=== PATIENT | female | born 1945 | race Caucasian/White ===

== ENCOUNTER 2024-03-13 12:40 | Inpatient (IN) | payer MEDICARE, OTHER ==
[~2024-03-13] VITALS: Ht 170.2 cm; Wt 68.5 kg
[2024-03-13 13:07] LABS: BASOPHILS # (AUTO) 0.1 K/uL (0.0-0.2); BASOPHILS % (AUTO) 0.8 % (0.0-2.0); EOSINOPHILS # (AUTO) 0.7 K/uL (0.0-0.7); EOSINOPHILS % (AUTO) 6.2 % (0.0-6.0); HEMATOCRIT 41 % (33-45); HEMOGLOBIN 13.3 g/dL (11.5-14.8); LYMPHOCYTES # (AUTO) 2.4 K/uL (0.8-4.8); LYMPHOCYTES % (AUTO) 19.9 % (20.0-44.0); MEAN CORPUSCULAR HEMOGLOBIN 26 PG (26.0-33.0); MEAN CORPUSCULAR HGB CONC 33 g/dl (31.0-36.0); MEAN CORPUSCULAR VOLUME 80 fL (82-100); MONOCYTES # (AUTO) 1.3 K/uL (0.1-1.30); MONOCYTES % (AUTO) 10.7 % (2.0-12.0); NEUTROPHILS # (AUTO) 7.4 K/uL (1.8-8.9); NEUTROPHILS % (AUTO) 62.4 % (43.0-81.0); PLATELET COUNT (AUTO) 534 K/uL (150-450); RED BLOOD CELL COUNT(AUTO) 5.11 MIL/uL (4.0-5.2); RED CELL DISTRIBUTION WIDTH 16.2 % (11.5-15.0); WHITE BLOOD COUNT (AUTO) 11.9 K/uL (4.3-11.0)
[2024-03-13 13:14] LABS: CALCIUM, SERUM 8.9 mg/dL (8.5-10.1); CARBON DIOXIDE 27 mmol/L (21-32); CHLORIDE 101 mmol/L (98-107); CREATININE 0.9 mg/dL (0.6-1.3); GLUCOSE 101 mg/dL (74-106); POTASSIUM 3.9 mmol/L (3.5-5.1); SODIUM SERUM 135 mmol/L (136-145); UREA NITROGEN, BLOOD 20 mg/dL (7-18)
[2024-03-13 13:29] LABS: ALANINE AMINOTRANSFERASE 12 U/L (12-78); ALBUMIN 2.8 g/dL (3.4-5.0); ALCOHOL, BLOOD < 3 mg/dL (0-10); ALKALINE PHOSPHATASE 55 U/L (46-116); ASPARTATE AMINOTRANSFERASE 11 U/L (15-37); BILIRUBIN,DIRECT 0.1 mg/dL (0.0-0.2); BILIRUBIN,TOTAL 0.4 mg/dL (0.2-1.0); TOTAL PROTEIN, SERUM 7.6 g/dL (6.4-8.2)
[2024-03-13 13:30] LABS: ACETAMINOPHEN <10 ug/ml (10-30); SALICYLATE 1.1 mg/dL (2.8-20.0)
[2024-03-13] MEDS ORDERED: FLUO20CA42 PO (14:20)
[2024-03-13] MEDS ORDERED: SENN8.6T19 PO (14:20)
[2024-03-13] MEDS ORDERED: LORA10TA7 PO (14:20)
[2024-03-13] MEDS ORDERED: LOPE2CAP PO (14:20)
[2024-03-13] MEDS ORDERED: GABA300C PO (14:20)
[2024-03-13] MEDS ORDERED: CLOP75TA15 PO (14:20)
[2024-03-13] MEDS ORDERED: DIVA250T47 PO (14:20)
[2024-03-13] MEDS ORDERED: MULT-594 PO (14:20)
[2024-03-13] MEDS ORDERED: L. A1TAB10 PO (14:20)
[2024-03-13] MEDS ORDERED: OMEG10006 PO (14:20)
[2024-03-13] MEDS ORDERED: FURO-145 PO (14:20)
[2024-03-13] MEDS ORDERED: NITR0.4T48 SL (14:20)
[2024-03-13] MEDS ORDERED: ACET-73 PO (14:20)
[2024-03-13] MEDS ORDERED: PANT40TA49 PO (14:20)
[2024-03-13] MEDS ORDERED: SPIR25TA PO (14:20)
[2024-03-13 14:25] LABS: APPEARANCE,URINE Cloudy (CLEAR); BILIRUBIN,URINE Negative (NEGATIVE); BLOOD, URINE Trace-lysed Ery/uL (NEGATIVE); COLOR,URINE YELLOW (YELLOW); KETONES,URINE Negative (NEGATIVE); LEUKOCYTE ESTERASE ,URINE Large (NEGATIVE); NITRITE, URINE Positive (NEGATIVE); PH,URINE 5.5 (5.0-8.0); PROTEIN,URINE Negative (NEGATIVE); UGLUCOSE Negative (NEGATIVE); UROBILINOGEN,URINE 0.2 EU/dL (0.2)
[2024-03-13 14:38] LABS: AMPHETAMINE, URINE NEGATIVE (NEGATIVE); BARBITURATE, URINE NEGATIVE (NEGATIVE); BENZODIAZEPINE, URINE NEGATIVE (NEGATIVE); CANNABINOID, URINE NEGATIVE (NEGATIVE); COCCAINE, URINE NEGATIVE (NEGATIVE); OPIATE, URINE NEGATIVE (NEGATIVE); PHENCYCLIDINE SCREEN,URINE NEGATIVE (NEGATIVE)
[2024-03-13 15:20] LABS: ADD URINE CULTURE YES; BACTERIA,URINE 1+ /HPF (None Seen); SQUAMOUS EPITHELIAL CELL,UR Moderate /HPF (None Seen); WBC,URINE 21-50 /HPF (0-3)
[2024-03-13] MEDS ORDERED: LORAZEPAM 0.5 MG TABLET PO PRN (18:00)
[2024-03-13] MEDS ORDERED: ZOLPIDEM TARTRATE 5 MG TABLET PO PRN (18:00)
[2024-03-13] MEDS ORDERED: MAG HYDROX/AL HYDROX/SIMETH 30 ML UDC PO PRN (18:00)
[2024-03-13 19:23] VITALS: BP 103/77; TEMP 98.2; O2SAT 99
[2024-03-13 21:26] VITALS: BP 119/64; TEMP 98; O2SAT 98
[2024-03-13] MEDS: Z GUARD REMEDY 4 OZ OINT TP SCH (21:30)
[2024-03-14 08:00] VITALS: BP 111/77; TEMP 98; O2SAT 98
[2024-03-14 08:33] LABS: ALANINE AMINOTRANSFERASE 11 U/L (12-78); ALBUMIN 2.6 g/dL (3.4-5.0); ALKALINE PHOSPHATASE 55 U/L (46-116); ASPARTATE AMINOTRANSFERASE 15 U/L (15-37); BILIRUBIN,TOTAL 0.4 mg/dL (0.2-1.0); CALCIUM, SERUM 9.1 mg/dL (8.5-10.1); CARBON DIOXIDE 25 mmol/L (21-32); CHLORIDE 101 mmol/L (98-107); CREATININE 0.8 mg/dL (0.6-1.3); GLUCOSE 112 mg/dL (74-106); SODIUM SERUM 137 mmol/L (136-145); TOTAL PROTEIN, SERUM 7.4 g/dL (6.4-8.2); UREA NITROGEN, BLOOD 18 mg/dL (7-18)
[2024-03-14 08:36] LABS: CHOLESTEROL 165 mg/dL (<200); HDL CHOLESTEROL 37 mg/dL (40-60); LDL 112 mg/dL (0-99); TRIGLYCERIDES 117 mg/dL (30-150)
[2024-03-14] MEDS ORDERED: Medication Not On Formulary EA (Omega-3 Fatty Acids (Omega-3) 1,000 MG) PO SCH (09:00)
[2024-03-14] MEDS: SPIRONOLACTONE 25 MG TABLET PO SCH (09:44)
[2024-03-14] MEDS: CIPROFLOXACIN HCL 250 MG TABLET PO SCH (09:45)
[2024-03-14] MEDS: ACIDOPHILUS/BULGARICUS 1 EACH TAB.CHEW PO SCH (09:45)
[2024-03-14] MEDS: LORATADINE 10 MG TABLET PO SCH (09:45)
[2024-03-14] MEDS: PANTOPRAZOLE 40 MG TABLET.DR PO SCH (09:45)
[2024-03-14] MEDS: MULTIVITAMINS,THERAGRAN 1 UDTAB TABLET PO SCH (09:45)
[2024-03-14] MEDS: FUROSEMIDE 20 MG TABLET PO SCH (09:45)
[2024-03-14] MEDS: GABAPENTIN 300 MG CAPSULE PO SCH (09:46)
[2024-03-14] MEDS: CLOPIDOGREL BISULFATE 75 MG TABLET PO SCH (09:47)
[2024-03-14] MEDS: FLUOXETINE HCL 20 MG CAPSULE PO SCH (10:19)
[2024-03-14] MEDS: DIVALPROEX SODIUM 250 MG TABLET.DR PO SCH (10:19)
[2024-03-14 16:00] VITALS: BP 117/66; TEMP 97.8; O2SAT 97
[2024-03-14 20:00] VITALS: BP 109/57; TEMP 98.1; O2SAT 98; O2SAT 99
[2024-03-15 08:00] VITALS: BP 114/58; TEMP 97.9; O2SAT 100
[2024-03-15 16:00] VITALS: BP 116/74; TEMP 97.7; O2SAT 98
[2024-03-15 20:00] VITALS: BP 119/68; TEMP 97.7; O2SAT 90
[2024-03-15] MEDS: MUPIROCIN OINT 2% 22 GM TUBE NS SCH (21:15)
[2024-03-16 08:00] VITALS: BP 112/75; TEMP 98.2; O2SAT 95
[2024-03-16] MEDS: ACETAMINOPHEN 325 MG TABLET PO PRN (09:28)
[2024-03-16] MEDS: NITROGLYCERIN 0.4 MG/TAB BOTTLE SL PRN (15:00)
[2024-03-16 16:00] VITALS: BP 118/80; TEMP 98.1; O2SAT 93
[2024-03-16] MEDS: MAGNESIUM HYDROXIDE 30 ML UDC PO PRN (20:04)
[2024-03-16 21:00] VITALS: BP 115/68; TEMP 98; O2SAT 98
[2024-03-17 08:00] VITALS: BP 114/77; TEMP 97.8; O2SAT 98
[2024-03-17 09:16] VITALS: BP 120/62; TEMP 97.7; O2SAT 92
[2024-03-17 16:00] VITALS: BP 95/67; TEMP 97.8; O2SAT 97
[2024-03-17] MEDS: NITROFURANTOIN/MONOHYDRATE MACROCRYSTALS 100 MG CAPSULE PO SCH (16:37)
[2024-03-17 20:00] VITALS: BP 110/68; TEMP 98.4; O2SAT 97
[2024-03-18 08:00] VITALS: BP 137/75; TEMP 97.6; O2SAT 94
[2024-03-18 16:00] VITALS: BP 100/67; TEMP 98.2; O2SAT 92
[2024-03-18 20:41] VITALS: BP 112/72; TEMP 98.2; O2SAT 95
[2024-03-19 08:00] VITALS: BP 120/72; TEMP 98.1; O2SAT 95
[2024-03-19 16:00] VITALS: BP 117/60; TEMP 98.2; O2SAT 95
[2024-03-19 21:39] VITALS: BP 120/62; TEMP 98.1; O2SAT 95
[2024-03-20 08:00] VITALS: BP 125/78; TEMP 97.4; O2SAT 94
[2024-03-20] MEDS: ENOXAPARIN SODIUM 40 MG/0.4 ML DISP.SYRIN SQ SCH (14:42)
[2024-03-20 16:00] VITALS: BP 112/76; TEMP 98.3; O2SAT 96
[2024-03-20] MEDS: SENNOSIDES 8.6 MG TABLET PO PRN (17:08)
[2024-03-20 20:38] VITALS: BP 113/57; TEMP 98.4; O2SAT 90
[2024-03-21 08:00] VITALS: BP 126/72; TEMP 98.7; O2SAT 98
== END 2024-03-21 15:15 | DRG 885 ==
LOC: ER 12:46 → GPS 16:01
PROVIDERS: ADMIT Psychiatry & Neurology Psychiatry; ATTEND Nurse Practitioner Family
DX: F31.30 Bipolar disorder, current episode depressed, mild or moderate severity, unspecified (principal); I11.0 Hypertensive heart disease with heart failure; N39.0 Urinary tract infection, site not specified; E87.1 Hypo-osmolality and hyponatremia; R45.851 Suicidal ideations; D68.69 Other thrombophilia; F03.93 Unspecified dementia, unspecified severity, with mood disturbance; Z16.24 Resistance to multiple antibiotics; I25.10 Atherosclerotic heart disease of native coronary artery without angina pectoris; K21.9 Gastro-esophageal reflux disease without esophagitis; E88.09 Other disorders of plasma-protein metabolism, not elsewhere classified; Z20.822 Contact with and (suspected) exposure to COVID-19; Z74.01 Bed confinement status; Z88.0 Allergy status to penicillin; Z88.6 Allergy status to analgesic agent; G62.9 Polyneuropathy, unspecified; I50.9 Heart failure, unspecified; B96.20 Unspecified Escherichia coli [E. coli] as the cause of diseases classified elsewhere
CPT/HCPCS: 36415; 80048-TC; 80053-TC; 80061-TC; 80076-TC; 81001; 84484-TC; 85025-TC; 87081-TC; 87086-TC; 97110-TC; 97530-TC; G0480; J1650